=== PATIENT | male | born 1995 | race Caucasian/White ===

== ENCOUNTER 2017-04-29 00:35 | Emergency (ER) | payer OTHER ==
[~2017-04-29] VITALS: Ht 193 cm; Wt 126.7 kg
[2017-04-29 01:36] LABS: HEMATOCRIT 47.9 % (38.0-50.0); HEMOGLOBIN 16.6 G/DL (12.5-16.6); MCH 28.7 PG (29.0-34.0); MCHC 34.7 G/DL (30.0-36.0); MCV 82.7 FL (86-99); PLATELET COUNT 221 K/uL (156-360); RBC DIS.WIDTH-CV 12.3 % (11.8-14.6); RBC DIS.WIDTH-SD 37.2 % (39-53); RED BLOOD COUNT 5.79 M/uL (4.00-5.50); WHITE BLOOD COUNT 8.4 K/uL (4.1-10.2)
[2017-04-29 01:51] LABS: CHLORIDE 103 mEq/L (99-109); POTASSIUM 3.6 mEq/L (3.7-5.4); SODIUM 137 mEq/L (136-147)
[2017-04-29 01:52] LABS: GLUCOSE 126 mg/dL (70-99)
[2017-04-29 01:56] LABS: CREATININE 0.9 mg/dL (0.6-1.3)
[2017-04-29 01:57] LABS: GFR ESTIMATE (CALCULATED) > 59 mL/min/ (58.99-99999); UREA NITROGEN (BUN) 13 mg/dL (9-23)
[2017-04-29 02:36] VITALS: BP 135/83
== END 2017-04-29 02:37 | disposition home or self-care (01) ==
LOC: EME 00:35
PROVIDERS: Emergency Medicine
DX: B34.9 Viral infection, unspecified (principal); R06.02 Shortness of breath; R00.0 Tachycardia, unspecified; F90.9 Attention-deficit hyperactivity disorder, unspecified type
CPT/HCPCS: 71046; 80048; 85027; 87502; 93005; 99281; 99285; J7030